=== PATIENT | male | born 1980 | race Caucasian/White ===

== ENCOUNTER 2024-03-02 19:44 | Emergency (ER) | payer OTHER, BC ==
[~2024-03-02] VITALS: Ht 172.7 cm; Wt 83.9 kg
[2024-03-02 20:05] VITALS: BP_SYST 123; PULSE 70; RESP 18; TEMP 98; O2SAT 97
[2024-03-02 21:20] VITALS: BP_SYST 123; PULSE 70; RESP 18; TEMP 98; O2SAT 97
== END 2024-03-02 21:18 | disposition home or self-care (01) ==
LOC: SED 19:44
DX: S06.0XAA Concussion with loss of consciousness status unknown, initial encounter (principal); R53.1 Weakness; R11.0 Nausea; R03.0 Elevated blood-pressure reading, without diagnosis of hypertension; Z85.9 Personal history of malignant neoplasm, unspecified; V89.2XXA Person injured in unspecified motor-vehicle accident, traffic, initial encounter; Y93.89 Activity, other specified; Y92.89 Other specified places as the place of occurrence of the external cause; Y99.8 Other external cause status
CPT/HCPCS: 70450-TC; 93005; 99284